=== PATIENT | female | born 1970 | race Caucasian/White ===

== ENCOUNTER 2017-05-30 21:10 | Emergency (ER) | payer BC ==
[~2017-05-30] VITALS: Ht 167.6 cm; Wt 100.0 kg
[~2017-05-30 21:10] MED LIST: CETI10 PO; ESZO2 PO; ZANT150T2 PO
[2017-05-30 21:11] VITALS: BP 122/83; PULSE 132; RESP 18; TEMP 101.8; O2SAT 94
[2017-05-30 21:29] VITALS: BP 121/63; PULSE 117; RESP 22; TEMP 102.6; O2SAT 98
[2017-05-30] MEDS ORDERED: ACETAMINOPHEN 500 MG CPLT PO ONE (21:30)
[2017-05-30] MEDS ORDERED: RESP: IPRATROPIUM 0.5 MG/2.5 ML NEB NEB ONE (21:30)
[2017-05-30] MEDS ORDERED: PSEUDOEPHEDRINE HCL 30 MG TAB PO ONE (21:30)
[2017-05-30] MEDS ORDERED: diphenhydrAMINE HCL 50 MG/ML VIAL IV PUSH ONE (21:30)
[2017-05-30] MEDS ORDERED: KETOROLAC TROMETHAMINE 30 MG/ML (IVP) VIAL IV PUSH ONE (21:30)
[2017-05-30] MEDS ORDERED: guaiFENesin/CODEINE SYRUP 200 MG/20 MG/10 ML CUP PO ONE (21:30)
--- NOTE | 2017-05-30 21:59 | PD ---
HPI Chief Complaint: Cold / Flu Symptoms Time Seen by Provider: 21:22 Travel History International Travel<30 days: No Contact w/Intl Traveler<30days: No Traveled to known affect area: No History of Present Illness HPI Patient is a 76-year-old female who has had a cold sore throat congestion wheeze for 3 weeks. she was on Tamiflu for 5 days and she was on Levaquin for 10 days without relief of her symptoms .. she is coming in with a fever body aches sore throat cough shortness of breath when she lies flat. Patient has no significant past medical history. She is taking Mucinex currently and Tylenol for the aches and pains and cough without relief of her symptoms. She is brought in by her who is a trauma surgeon at our hospital. Pt symptoms have been going on for over 3 weeks. Pt appears uncomfortable but not toxic not septic. 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 Tonsillectomy: Yes Other Surgery: Yes (C5-C6 fusion) Social History Alcohol Use: Yes (on occasion) Tobacco Use: No Substance Use: No Allergies-Medications (Allergen,Severity, Reaction): Coded Allergies: No Known Allergies (Verified Allergy, Unknown, 05/09/17) Reported Meds & Prescriptions Reported Meds & Active Scripts Active Ibuprofen 800 Mg Tab 800 Mg PO Q6HR PRN Azithromycin 250 Mg Tab 250 Mg PO DIRECTED Take 2 tabs (500 mg) on day 1 then 1 tab daily x 4 days. Guaifenesin AC Liq (Guaifenesin-Codeine Liq) 100-10 Mg/5 Ml Syrp 10 Ml PO Q6H PRN Magic Mouthwash Pediatric/Adult Liq (Lidocaine/Diphenhydr/Alum/Mg/Simeth) 60 Ml Susp 5 Ml SWISH-SWAL ACHS Each 5mL contains: Diphenydramine 4.5mg, Viscous Lidocaine 2% 10mg, Maalox Advanced Regular Strength 2.7ml Reported Cetirizine (Cetirizine HCl) 10 Mg Tab 10 Mg PO DAILY Zantac (Ranitidine HCl) 150 Mg Tab 150 Mg PO DAILY Lunesta (Eszopiclone) 2 Mg Tab 2 Mg PO HS PRN Review of Systems Except as stated in HPI: all other systems reviewed are Neg General / Constitutional: Positive: Fever, Chills HENT: Positive: Headaches, Sore Throat Respiratory: Positive: Cough, Shortness of Breath, Wheezing Musculoskeletal: Positive: Myalgias, Weakness Physical Exam Narrative GENERAL: Appears uncomfortable non toxic, non septic appearance SKIN: Warm and dry. HEAD: Atraumatic. Normocephalic. EYES: Pupils equal and round. No scleral icterus. No injection or drainage. ENT: No nasal bleeding or discharge. Mucous membranes pink and moist. Posterior pharynx has pale whitish areas and also erythematous areas but no obvious exudate NECK: Trachea midline. No JVD. mild submental lymphadenopathy . CARDIOVASCULAR: Regular rate and rhythm. RESPIRATORY: No accessory muscle use. Clear to auscultation. Breath sounds equal bilaterally. GASTROINTESTINAL: Abdomen soft, non-tender, nondistended. Hepatic and splenic margins not palpable. MUSCULOSKELETAL: Extremities without clubbing, cyanosis, or edema. No obvious deformities. NEUROLOGICAL: Awake and alert. No obvious cranial nerve deficits. Motor grossly within normal limits. Five out of 5 muscle strength in the arms and legs. Normal speech. PSYCHIATRIC: Appropriate mood and affect; insight and judgment normal. Data Data Last Documented VS Orders Orders Ipratropium Neb (Atrovent Neb) (05/30/17 21:30) Acetaminophen (Tylenol) (05/30/17 21:30) Ketorolac Inj (Toradol Inj) (05/30/17 21:30) Pseudoephedrine (Sudafed) (05/30/17 21:30) Diphenhydramine Inj (Benadryl Inj) (05/30/17 21:30) Guaifen-Cod 200-20 Mg/10ml Liq (Robituss (05/30/17 21:30) Influenzae A/B Antigen (05/30/17 21:30) Group A Rapid Strep Screen (05/30/17 21:30) Chest, Pa & Lat (05/30/17 ) Strep Culture (Group A) (05/30/17 21:42) Sodium Chlor 0.9% 1000 Ml Inj (Ns 1000 M (05/30/17 22:45) Ed Discharge Order (05/30/17 23:00) MDM Medical Decision Making Medical Screen Exam Complete: Yes Emergency Medical Condition: Yes Differential Diagnosis viral illness vs strep pharyngitis vs INFLUenza A or B or PNA , viral bronchitis other Narrative Course CHEST X- XRAY NORMAL NO INFILTRATE , STREP AND FLU SWABS NEGATIVE, SX TREATMENT GIVEN AND D/C HOME WITH RX ROBITUSSIN AC AND AZITHROMYCIN , AND SUDAFED MAGIC MOUTHWASH FOR THROAT PAIN AND MOTRIN , FOLLOW UP OUTPT Diagnosis Primary Impression: Viral respiratory illness Scripts Ibuprofen (Ibuprofen) 800 Mg Tab 800 MG PO Q6HR Y for PAIN, #40 TAB 0 Refills Prov: Chandra Hunter MD 05/30/17 Azithromycin (Azithromycin) 250 Mg Tab 250 MG PO DIRECTED for Infection, #6 TAB 0 Refills Take 2 tabs (500 mg) on day 1 then 1 tab daily x 4 days. Prov: Chandra Hunter MD 05/30/17 Guaifenesin-Codeine Liq (Guaifenesin AC Liq) 100-10 Mg/5 Ml Syrp 10 ML PO Q6H Y for COUGH, #1 BOTTLE 0 Refills Prov: Chandra Hunter MD 05/30/17 Szqcdimzfizgkbq-Zkqsgaeje-Nxa-Alum-Simeth Liq (Magic Mouthwash Pediatric/Adult Liq) 60 Ml Susp 5 ML SWISH-SWAL ACHS for Mouth sores, #100 ML 0 Refills Each 5mL contains: Diphenydramine 4.5mg, Viscous Lidocaine 2% 10mg, Maalox Advanced Regular Strength 2.7ml Prov: Chandra Hunter MD 05/30/17 Disposition: 01 DISCHARGE HOME Condition: Good Chandra Hunter MD May 30, 2017 21:59
[2017-05-30 22:25] VITALS: BP 131/62; PULSE 108; RESP 22; TEMP 102.5; O2SAT 95
[2017-05-30] MEDS ORDERED: SODIUM CHLOR 0.9% 1000 ML INJ 1,000 ML IV ONE (22:45)
--- NOTE | 2017-05-30 22:56 | RADRPT ---
EXAM DATE/TIME: 05/30/2017 22:41 [facility] COMPARISON: No previous studies available for comparison. INDICATIONS : Flu like symptoms- Shortness of breath, chest pain and coughing. MEDICAL HISTORY : None. SURGICAL HISTORY : Appendectomy. ENCOUNTER: Initial ACUITY: 2 weeks PAIN SCORE: 5/10 LOCATION: Bilateral chest FINDINGS: PA and lateral views of the chest demonstrate the lungs to be symmetrically aerated without evidence of mass, infiltrate or effusion. The cardiomediastinal contours are unremarkable. Lower cervical fi xation hardware in place. Osseous structures are intact. CONCLUSION: 1. No acute cardiopulmonary disease. Mango Mcafrland MD on May 30, 2017 at 22:54 Board Certified Radiologist. This report was verified electronically.
[2017-05-30] MEDS ORDERED: MAGICPED SWISH-SWAL (22:58)
[2017-05-30] MEDS ORDERED: AZIT250T3 PO (22:58)
[2017-05-30] MEDS ORDERED: GUAISYP4 PO (22:58)
[2017-05-30] MEDS ORDERED: IBUP1TAB7 PO (22:59)
== END 2017-05-30 23:13 | disposition home or self-care (01) ==
LOC: NEPC 21:10
DX: B33.8 Other specified viral diseases (principal); K13.70 Unspecified lesions of oral mucosa; Z79.899 Other long term (current) drug therapy
CPT/HCPCS: 71046; 87081; 87804; 87880; 94664; 96361; 96374; 96375; 99284; J1200; J1885; J7030; J7644